=== PATIENT | male | born 1985 | race Caucasian/White ===

== ENCOUNTER → 2018-08-06 | Outpatient (CLI) | payer BC ==
[~2018-08-06] MED LIST: BARIUM SULFATE 176 GM BTL PO ONE; BARIUM SULFATE 340 GM POWD ONE; OMEP40CA48 PO; RANI-320 PO
--- NOTE | 2018-08-06 17:27 | RADIOLOGY IMAGING REPORT ---
FACILITY: [facility] - [place], [place] PATIENT NAME: Kolton Neil : 1985 MR: [id number] V: [id number] EXAM DATE: ORDERING PHYSICIAN: NICK OWEN TECHNOLOGIST: Location: [facility] Patient: Kolton Neil : 1985 Visit/Account:[id number] Date of Sevice: 08/06/2018 Exam type: UPPER GI SERIES W/O AIR History: Bloating, nausea vomiting x1 year Comparison: None. Findings: Double contrast upper GI series was performed with thick and thin barium and air contrast. There is no evidence of esophageal narrowing or mucosal erosion. There was a moderate amount of gastroesophag eal reflux observed.. There was delayed gastric emptying observed with small amounts of barium enter ing the duodenal bulb and duodenal C-loop. Gastric folds appeared mildly thickened. No other abnorm ality of the stomach duodenum was seen the fluoroscopy dose area product was 1310.68 micro-Herrera per m eter squared IMPRESSION: 1. Moderate amount of gastroesophageal reflux although no evidence of esophageal narrowing or mucosa l erosion There was delayed gastric emptying observed with small amounts of barium entering the duodenal bulb a nd duodenal C-loop. This appeared to be more of a functional issue as opposed to an obstructive issu e. The gastric folds appear mildly thickened. Report Dictated By: Mica Colorado MD at 08/06/2018 5:19 PM Report E-Signed By: Mica Colorado MD at 08/06/2018 5:24 PM WSN:[email or web address]
== END ==
LOC: RAD 00:52
PROVIDERS: ATTEND Surgery
DX: K21.9 Gastro-esophageal reflux disease without esophagitis (principal)
CPT/HCPCS: 74240

== ENCOUNTER 2018-10-15 01:39 | Day surgery (SDC) | payer BC ==
[2018-10-15] VITALS (9 sets, daily range): BP systolic 134–154; BP diastolic 94–112
[~2018-10-15] VITALS: Ht 185.4 cm; Wt 73.9 kg
[~2018-10-15 01:39] MED LIST changes: -BARIUM SULFATE 176 GM BTL PO ONE; -BARIUM SULFATE 340 GM POWD ONE; +LOSA100T75 PO; +NEBI10TA4 PO
[2018-10-15] MEDS ORDERED: LIDOCAINE MPF 1% 5 ML VIAL ONE (06:55)
[2018-10-15] MEDS ORDERED: PROPOFOL EMUL(*) 10MG/ML 20 ML 40 ML ONE (06:55)
[2018-10-15] MEDS ORDERED: KETAMINE HCL 500 MG/10 ML VIAL ONE (06:56)
[2018-10-15] MEDS ORDERED: NORMOSOL R SOLN(*) 1000 ML BAG 1,000 ML IV PRN (07:50)
[2018-10-15] MEDS ORDERED: LIDOCAINE/SOD BICARB 8.4% SYR ID ONE (07:50)
--- NOTE | 2018-10-15 08:45 | Short(Outpt) Discharge Summary ---
Discharge Summary Reason for Hosp/Final Diag: (1) Early satiety Status: Chronic Hospital Course & Plan: EGD with biopsies completed without problems. (2) Postprandial nausea Status: Chronic (3) Postprandial abdominal bloating Status: Chronic (4) Regurgitation of food Status: Chronic Departure Discharge to: Home, Self Care Discharge Instructions Home Meds Active Scripts Ranitidine Hcl (RANITIDINE HCL) 300 Mg Tablet, 1 TAB PO QHS, #60 TAB 6 Refills Prov:NICK OWEN MD 08/04/18 Omeprazole (OMEPRAZOLE) 40 Mg Capsule.dr, 1 CAP PO QDAY, #60 CAP 6 Refills Take first thing every morning on an empty stomach and wait 30 minutes before eating. Prov:NICK OWEN MD 08/04/18 Reported Medications Losartan Potassium (LOSARTAN POTASSIUM) 100 Mg Tablet, 100 MG PO QDAY 10/01/18 Nebivolol Hcl (BYSTOLIC) 10 Mg Tab, 10 MG PO DAILY, TAB 10/01/18 Diet: Regular Activity: As Tolerated Special Instructions: Your upper endoscopy was completed without problems. I didn't find any obvious problems such as ulcers or inflammation. I did perform some biopsies of your stomach and duodenum to look for a bacterium called H.pylori and to rule out gluten enteropathy. My office will call you in the next couple of days to schedule a gastric emptying study in radiology and a follow up appointment to see me back in my office to discuss all results with you. NICK OWEN MD Oct 15, 2018 08:45
--- NOTE | 2018-10-15 10:25 | NUR ---
0839- PT. RECEIVED FROM OR VIA STRETCHER WITH THE SIDERAILS UP. SBAR RECEIVED FROM KEKE TONY AND DR. ROBBINS. PT. SLEEPING QUIETLY AND AROUSABLE ON CALLING. SEE ADMISSIONS ASSESSMENT. 0845- TURNED PT. O2 DOWN TO 1LPM. 0850- RETURNED PT TO ROOM AIR. 0900- PT. INSTRUCTED ON HIGH BLOOD PRESSURE. PT. TOLD TO TAKE LORSARTAN WHEN GETTING HOME AND INSTRUCTED TO FOLLOW-UP WITH PCP. PT. ALSO TOLD TO SEE MEDICAL ATTENTION IF HE DEVELOPS CHEST PAIN OR SOB. 0930- PT. REPORTS NAUSEA SO EMESIS BAG GIVEN TO HIM AND HE STATED THAT HE WANTED TO SIT UP AND TRY SOME SHANE-CLAUDETTE. 0945- DISCHARGE INSTRUCTIONS GONE OVER WITH THE PT. AND HIS . PT. REMINDED TO SEE PCP ABOUT BP AND TO SEE MEDICAL ATTENTION IF HE HAS CHEST PAIN OR SOB. 0950- ORTHOSTATIC B/P PREFORMED. 0955- PT. GETTING DRESSED. 1002- IV TAKEN OUT AND PRESSURE DRESSING APPLIED. 1010- ESCORTED PT. OUT VIA WHEELCHAIR ACCOMPANIED BY . SEE DISCHARGE ASSESSMENT.
== END 2018-10-15 10:10 | disposition home or self-care (01) ==
LOC: OR 01:39
PROVIDERS: ATTEND Surgery
DX: R11.2 Nausea with vomiting, unspecified (principal)
CPT/HCPCS: 43239; 87077; 88305; J2001; J2704; J3490

== ENCOUNTER → 2018-10-20 | Outpatient (CLI) | payer BC ==
--- NOTE | 2018-10-20 12:48 | RADIOLOGY IMAGING REPORT ---
FACILITY: [facility] - [place] PATIENT NAME: Kolton Neil : 1985 MR: [id number] V: [id number] EXAM DATE: ORDERING PHYSICIAN: NICK OWEN TECHNOLOGIST: Location: [facility] - [place] Patient: Kolton Neil : 1985 Visit/Account:[id number] Date of Sevice: 10/20/2018 Exam type: GASTRIC EMPTYING History: Early satiety, postprandial nausea and bloating and vomiting Comparison: None. Findings: The patient received 2.1 mCi of technetium 99m sulfur colloid in 4 ounces of egg beaters with two sli mina of toast in 4 ounces of water which was mostly consumed within 10 minutes.. Anterior and posterior imaging was obtained over the abdomen immediately following the medial, at one hour, two hours, three hours and four hours following meal ingestion. Time/activity curves were gen erated. 24% of gastric contents had emptied at one hour. 82% of gastric contents had emptied at two hours. 100% of gastric contents had emptied at three hours. The T1 half gastric emptying time is 97 minutes IMPRESSION: 1. 100% of gastric contents had emptied at three hours Report Dictated By: Mica Colorado MD at 10/20/2018 12:40 PM Report E-Signed By: Mica Colorado MD at 10/20/2018 12:43 PM WSN:[email or web address]
== END ==
LOC: NUC 01:24
PROVIDERS: ATTEND Surgery
DX: R68.81 Early satiety (principal); R11.0 Nausea; R14.0 Abdominal distension (gaseous)
CPT/HCPCS: 78264; A9541

== ENCOUNTER → 2018-10-22 | Outpatient (CLI) | payer BC ==
--- NOTE | 2018-10-22 09:06 | RADIOLOGY IMAGING REPORT ---
FACILITY: PATIENT NAME: Kolton Neil : 1985 MR: [id number] V: [id number] EXAM DATE: ORDERING PHYSICIAN: NICK OWEN TECHNOLOGIST: Location: [facility] - [place] Patient: Kolton Neil : 1985 Visit/Account:[id number] Date of Sevice: 10/22/2018 GALLBLADDER HISTORY: Bloating ADDITIONAL HISTORY: None. COMPARISON: None. FINDINGS: Liver: Negative. Gallbladder: Is a 5 mm fixed nodule in the gallbladder wall without posterior shadowing. No stones a re identified. Negative sonographic Perez's sign. Common duct: 2.3 mm diameter. Pancreas: Well-visualized and unremarkable. Right kidney: Negative. Upper abdominal aorta and IVC: Patent. Ascites: None visualized. IMPRESSION: small gallbladder polyp noted. Exam otherwise normal. Etiology of patient's bloating is not identified. Report Dictated By: Lazaro Hendrix MD at 10/22/2018 8:57 AM Report E-Signed By: Lazaro Hendrix MD at 10/22/2018 9:00 AM WSN:[email or web address]
== END ==
LOC: US 01:09
PROVIDERS: ATTEND Surgery
DX: K82.4 Cholesterolosis of gallbladder (principal)
CPT/HCPCS: 76705

== ENCOUNTER → 2019-01-02 | Outpatient (CLI) | payer BC | LOC: LAB 10:08 | PROVIDERS: ATTEND Internal Medicine Cardiovascular Disease | DX: I10 Essential (primary) hypertension (principal) | CPT/HCPCS: 36415; 82088; 82565; 83835; 84244; 84443 ==

== ENCOUNTER → 2019-01-05 | Outpatient (CLI) | payer BC | LOC: LAB 15:48 | PROVIDERS: ATTEND Internal Medicine Cardiovascular Disease | DX: I15.9 Secondary hypertension, unspecified (principal) | CPT/HCPCS: 82088; 84244 ==

== ENCOUNTER → 2019-01-14 | Outpatient (CLI) | payer BC ==
[~2019-01-14] MED LIST changes: +IOPAMIDOL 76% 100 ML INFUS BTL 100 ML ONE; +NS(*) 0.9% 50 ML BAG 50 ML ONE
--- NOTE | 2019-01-14 11:46 | RADIOLOGY IMAGING REPORT ---
FACILITY: 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 TECHNIQUE: CTA, abdomen with and without contrast contrast. 3D coronal slab MIPs and 2D reconstruct ions in the coronal and sagittal planes were also created. . Delayed imaging was performed through t he abdomen in the portal venous phase and 15 minute delayed images to evaluate the adrenal glands as wellDose Lowering Technique One of the following dose optimization techniques was utilized in the performance of this exam: Autom ated exposure control; adjustment of the mA and/or kV according to the patient's size; or use of an i terative reconstruction technique. Specific details can be referenced in the facility's radiology C T exam operational policy. CONTRAST: 100 COMPARISON: None. FINDINGS: Vessels: There is no evidence of an abdominal aortic aneurysm or dissection. There is no significan t narrowing identified at the origins of the celiac trunk, SMA or MONTSE. There is a single right renal artery without evidence of atherosclerotic narrowing or fibromuscular dysplasia. There are two left renal arteries both without evidence of atherosclerotic narrowing or fibromuscular dysplasia. Commo n iliac arteries also appeared widely patent Abdomen and Pelvis: Hepatobiliary: Arterial phase imaging of the liver demonstrates a 5 mm area of arterial enhancement along the inferior medial tip of the right lobe. This likely represents a perfusional variant. This is not seen on the portal venous phase Spleen: Accessory splenule Adrenals: There is no demonstration of an adrenal mass Pancreas: Negative. Kidneys: Negative. Bowel/peritoneum/mesentery: Negative. Lymph nodes: Negative. Bones/body wall: There is a very gentle S-shaped scoliosis of the thoracic spine Other findings: None significant IMPRESSION: No evidence of renal artery stenosis or fibromuscular dysplasia No demonstration of an adrenal mass There is a 5 mm area of arterial enhancement along the inferior medial tip of the right lobe of the l iver which is not seen on the portal venous phase images and likely represents an incidental perfusio nal variant Report Dictated By: Mica Colorado MD at 01/14/2019 11:30 AM Report E-Signed By: Mica Colorado MD at 01/14/2019 11:42 AM LUPEN:[email or web address]
--- NOTE | 2019-01-14 11:56 | RADIOLOGY IMAGING REPORT ---
FACILITY: [facility] - [place] PATIENT NAME: Kolton Neil : 1985 MR: [id number] V: [id number] EXAM DATE: ORDERING PHYSICIAN: DESHAUN HEIN TECHNOLOGIST: Location: [facility] Patient: Kolton Neil : 1985 Visit/Account:[id number] Date of Sevice: 01/14/2019 CT CTA CHEST W & W/O CON HISTORY: Aortic disease, evaluate for coarctation of aorta ADDITIONAL HISTORY: None. TECHNIQUE: CTA chest with intravenous contrast. Axial imaging acquired following administration of IV contrast timed for maximum opacification of the pulmonary arterial vasculature. Slab 3-D MIP regino nstructed images were also created for further evaluation and interpretation. Reconstruction of the [facility] data set includes multiplanar 2-D in the sagittal and coronal planes and 3-D reconstructed amaya nal slab MIP series. 3-D images were created by the technologist.Dose Lowering Technique One of the following dose optimization techniques was utilized in the performance of this exam: Autom ated exposure control; adjustment of the mA and/or kV according to the patient's size; or use of an i terative reconstruction technique. Specific details can be referenced in the facility's radiology C T exam operational policy. CONTRAST: 100 mL [id number] COMPARISON: None. FINDINGS: Lungs/pleura: There is mild biapical irregular pleural thickening Heart/vessels: There is no evidence of a thoracic aortic aneurysm or dissection. No evidence of coa rctation of the thoracic aorta. Period there is no evidence of narrowing at the origins of the aorti c branch vessels. No calcifications identified at the root of the aorta. There is no evidence of a pericardial effusion Mediastinum/lymph nodes: Negative. Visualized upper abdomen: Please see today's CTA of the abdomen with and without contrast dictation Bones/soft tissues: There is a gentle S-shaped scoliosis of the thoracic spine Additional findings: None IMPRESSION: No evidence of an aortic aneurysm, aortic dissection or coarctation of the aorta Mild biapical irregular pleural thickening. Report Dictated By: Mica Colorado MD at 01/14/2019 11:42 AM Report E-Signed By: Mica Colorado MD at 01/14/2019 11:52 AM WSN:[email or web address]
== END ==
LOC: RAD 01:03
PROVIDERS: ATTEND Internal Medicine Cardiovascular Disease
DX: I10 Essential (primary) hypertension (principal)
CPT/HCPCS: 71275; 74175; 93306; J7050; Q9967